=== PATIENT | female | born 1970 | race African-American/Black ===

== ENCOUNTER 2017-02-14 09:54 | Emergency (ER) | payer MEDICAID, MEDICARE ==
[~2017-02-14] VITALS: Ht 162.6 cm; Wt 78.0 kg
[2017-02-14 09:56] VITALS: BP 182/108; PULSE 100; RESP 24; TEMP 98.9; O2SAT 97
[2017-02-14] MEDS ORDERED: ZITHTAB PO (12:40)
--- NOTE | 2017-02-14 12:45 | PD ---
HPI Chief Complaint: Abnormal Results Time Seen by Provider: 12:02 Travel History International Travel<30 days: No Contact w/Intl Traveler<30days: No Traveled to known affect area: No History of Present Illness HPI This patient complains of dry hacking cough. Duration 3 days. She denies fever. She has history of asthma and COPD. She quit smoking one month ago. She has an inhaler as well as Advair Diskus. PFSH Past Medical History Asthma: Yes Bipolar Disorder: Yes Anxiety: Yes Depression: Yes High Cholesterol: Yes COPD: Yes Gastrointestinal Disorders: Yes (CONSTIPATION, IBS) GERD: Yes Hypertension: Yes Musculoskeletal: Yes (CHRONIC BACK PAIN) Immunizations Current: No Pneumonia: Yes Tetanus Vaccination: Unknown Influenza Vaccination: No ?: Not Past Surgical History Abdominal Surgery: Yes (EXPLORE LAP ) Gynecologic Surgery: Yes (HYSTERECTOMY) Social History Alcohol Use: Yes (occ) Tobacco Use: Yes (socially) Substance Use: No Allergies-Medications (Allergen,Severity, Reaction): Coded Allergies: No Known Allergies (Unverified , 02/14/17) Reported Meds & Prescriptions Reported Meds & Active Scripts Active Zithromax Z-Roshan (Azithromycin) 250 Mg Dspk 250 Mg PO DIRECTED 500 MG (2 tabs) day 1, then 1 tab days 2-5. Review of Systems General / Constitutional: No: Fever HENT: No: Headaches Respiratory: Positive: Cough Gastrointestinal: No: Abdominal Pain Physical Exam Narrative RESPIRATORY: Respiratory effort unlabored, no retractions or use of accessory muscles. Breath sounds are clear and symmetric. CARDIOVASCULAR: Regular rate and rhythm without murmur. Extremities showed no edema or varicosities. GASTROINTESTINAL: Abdomen soft, non-tender, nondistended. Positive bowel sounds. No hepato-splenomegaly, or palpable masses. No guarding. Data Data Last Documented VS Vital Signs Date Time Temp Pulse Resp B/P Pulse Ox O2 Delivery O2 Flow Rate FiO2 02/14/17 09:56 98.9 100 24 182/108 97 Room Air MDM Medical Decision Making Medical Screen Exam Complete: Yes Emergency Medical Condition: Yes Medical Record Reviewed: Yes Differential Diagnosis Bronchitis, pneumonia, COPD Narrative Course I have reviewed the patient's electronic medical record. Patient has clear lungs and a new dry hacking cough with chronic lung disease. Z-Roshan prescribed The patient was advised to follow up with their physician and return if they worsen. Diagnosis Primary Impression: Bronchitis Additional Instructions: The patient was advised to follow up with their physician and return if they worsen. Med/Other Pt SpecificInfo: Prescription(s) given Scripts Azithromycin (Zithromax Z-Roshan)250 Mg [id number] Mg PO DIRECTED #1 DSPK Ref 0 500 MG (2 tabs) day 1, then 1 tab days 2-5. Prov:Keon Traylor MD 02/14/17 Disposition: 01 DISCHARGE HOME Condition: Stable Keon Traylor MD Feb 14, 2017 12:45
== END 2017-02-14 12:55 | disposition home or self-care (01) ==
LOC: NEPD 09:54
DX: J40 Bronchitis, not specified as acute or chronic (principal); J45.909 Unspecified asthma, uncomplicated; J44.9 Chronic obstructive pulmonary disease, unspecified; I10 Essential (primary) hypertension; K21.9 Gastro-esophageal reflux disease without esophagitis; E78.00 Pure hypercholesterolemia, unspecified; F31.9 Bipolar disorder, unspecified; F41.9 Anxiety disorder, unspecified; K58.9 Irritable bowel syndrome, unspecified
CPT/HCPCS: 99283